=== PATIENT | female | born 1940 | race African-American/Black ===

== ENCOUNTER 2017-01-24 09:00 | Outpatient (RCR) | payer OTHER | END 2017-02-21 | disposition home or self-care (01) | LOC: PTY 09:00 | DX: M54.5 Low back pain (principal); G89.29 Other chronic pain | CPT/HCPCS: 97110; 97140; 97162; G0283 ==

== ENCOUNTER 2017-03-17 08:45 | Outpatient (RCR) | payer OTHER | END 2017-03-24 | disposition home or self-care (01) | LOC: PTY 08:45 | DX: M25.511 Pain in right shoulder (principal); M54.5 Low back pain; G89.29 Other chronic pain | CPT/HCPCS: 97035; 97110; 97140; 97162; G0283 ==

== ENCOUNTER → 2017-03-24 | Outpatient (RCR) | payer OTHER | END | disposition home or self-care (01) | LOC: PTY 09:19 | DX: M54.5 Low back pain (principal); G89.29 Other chronic pain ==

== ENCOUNTER 2017-04-06 09:15 | Outpatient (RCR) | payer OTHER | END 2017-04-23 | disposition home or self-care (01) | LOC: PTY 09:15 | DX: M25.511 Pain in right shoulder (principal); M54.5 Low back pain; G89.29 Other chronic pain; M19.91 Primary osteoarthritis, unspecified site ==

== ENCOUNTER 2017-04-20 09:15 | Outpatient (RCR) | payer OTHER | END 2017-04-23 | disposition home or self-care (01) | LOC: PTY 09:15 | DX: M25.511 Pain in right shoulder (principal); M54.5 Low back pain; G89.29 Other chronic pain | CPT/HCPCS: 97035; 97110; 97116; 97140; G0283 ==

== ENCOUNTER 2017-05-18 09:15 | Outpatient (RCR) | payer OTHER | END 2017-05-24 | disposition home or self-care (01) | LOC: PTY 09:15 | DX: M25.511 Pain in right shoulder (principal); M54.5 Low back pain; G89.29 Other chronic pain | CPT/HCPCS: 97035; 97110; 97140; G0283 ==

== ENCOUNTER 2017-06-13 09:15 | Outpatient (RCR) | payer OTHER | END 2017-06-23 | disposition home or self-care (01) | LOC: PTY 09:15 | DX: M25.511 Pain in right shoulder (principal); M54.5 Low back pain; G89.29 Other chronic pain | CPT/HCPCS: 97035; 97110; 97140; G0283 ==

== ENCOUNTER 2017-06-30 09:33 | Outpatient (RCR) | payer OTHER | END 2017-07-24 | disposition home or self-care (01) | LOC: PTY 09:33 | DX: M54.5 Low back pain (principal) | CPT/HCPCS: 97110; 97140; G0283 ==